=== PATIENT | male | born 2000 | race Caucasian/White ===

== ENCOUNTER 2023-04-14 14:36 | Emergency (ER) | payer OTHER ==
[2023-04-14 14:40] VITALS: BP 138/83; PULSE 65; RESP 18; TEMP 98.6
[2023-04-14] MEDS ORDERED: TOPICAL SKIN ADHESIVE 1 EACH AMP TOPICAL ONE (15:36)
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
== END 2023-04-14 16:47 | disposition home or self-care (01) ==
LOC: EC 14:36
DX: S01.81XA Laceration without foreign body of other part of head, initial encounter (principal); F17.200 Nicotine dependence, unspecified, uncomplicated; Y04.0XXA Assault by unarmed brawl or fight, initial encounter
CPT/HCPCS: 12011; 71046; 99284